=== PATIENT | male | born 1965 | race Caucasian/White ===

== ENCOUNTER 2024-10-25 01:37 | Emergency (ER) | payer OTHER, SELFPAY ==
[2024-10-25 01:53] VITALS: BP 140/83; PULSE 97; RESP 16; TEMP 36.9; O2SAT 100; BMI 27.0
--- NOTE | 2024-10-25 01:53 | ED.GENADULT ---
HPI - General Adult General Chief complaint: Wound/Laceration Stated complaint: rt hand finger infected Time Seen by Provider: 10/25/24 01:40 History of Present Illness HPI narrative: 59-year-old male with history of alcohol use, diabetes presents for a right-hand finger infection. History is somewhat unclear - patient has very scattered thought process and his retelling of events is inconsistent. Patient says that he needs a brace to keep from using his hand and strong antibiotics. 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 Minimal surrounding erythema, no drainable fluid collection Neuro: AO x3, CN II-XII grossly intact, moves all extremities Medical Decision Making MDM Narrative Medical decision making narrative: Paronychia of R index finger. Patient has already been prescribed abx. Confabulatory history. BONY form shows several visits for various complaints. Patient can use salt water soaks for finger. Discharge Plan Departure Patient Disposition: Home Clinical Impression: Paronychia Instructions: DI for Paronychia Activity Restrictions/Additional Instructions: Use warm salt water soaks to help your finger. Stand Alone Forms: Patient Portal/API/Survey
[2024-10-25] MEDS: BACITRACIN OINT 0.9 GM PCKT 1 APPLIC TOP (01:59)
== END 2024-10-25 02:04 | disposition home or self-care (01) ==
PROVIDERS: Emergency Provider Emergency Medicine
DX: L03.011 Cellulitis of right finger (principal)
CPT/HCPCS: 99282